=== PATIENT | male | born 1965 | race Caucasian/White ===

== ENCOUNTER 2016-12-17 10:47 | Observation (INO) | payer BC ==
[~2016-12-17] VITALS: Ht 172.7 cm; Wt 98.0 kg
--- NOTE | ~2016-12-17 | ECH ---
Transthoracic Echocardiography Report (TTE) Demographics Patient Name CARMEN MCMILLAN Date of Study 12/17/2016 Patient Number [id number] Visit Number [id number] Date of 1965 Room Number 433 Accession Number [id number] Gender Male Age 51 year(s) Referring Olu Josue Inside Sales Person Sheela Glass [facility] Physician Physician Martha Moses MD Restaurant Hourly Manager Physician Anton Supervising Ordering Physician King Uriel Sanchez MD, MD/MLP Nurse Stress Antique Clock Repairer Conclusions Contractility Score Summary Normal Left Ventricular contractility was noted. Summary Technically fair exam. The estimated left ventricular ejection fraction is 60-65%. Normal valvular function. Recommendation The patient will be given the results of this study by the physician who ordered the exam. Procedure Type of Study TTE procedure:Echo Complete SF. Procedure Date Date: 12/17/2016 Start: 04:33 PM Technical Quality: Fair due to body habitus. Indications:Chest pain and Coronary artery disease. Appropriate Use Criteria: 9 Height: 68 inches Weight: 216 pounds BSA: 2.11 m Rhythm: NSR HR: 63 bpm BP: 98/70 mmHg Allergies - Other:Severity - Unknown(augmentin). M-Mode/2D Measurements LV Diastolic Dimension: 4.6 cm LV Systolic Dimension: 265 cm LV Septum Diastolic: 1.01 cm LV PW Diastolic: 0.94 cm AO Root Dimension: 2.8 cm Cardiac Output: 8.25 l/min LA Dimension: 3.63 cm Cardiac Index: 3.91 l/min*m RV Diastolic Dimension: 3.01 cm LA volume index: 24 ml/m LVOT: 2.45 cm LVOT VTI: 27.8 cm RV Base: 3.44 cm LV Stroke volume: 130.99 ml RV Mid: 2.45 cm LV Stroke volume index: 62.08 ml/m TAPSE: 3.12 cm TDI-S': 13 cm/s Doppler Measurements AV Peak Velocity: 1.31 m/s MV Peak E-Wave: 0.74 m/s AV Peak Gradient: 6.86 mmHg MV Peak A-Wave: 0.76 m/s AV Mean Gradient: 3.2 mmHg MV E/A Ratio: 0.98 LVOT Peak Velocity: 1.24 m/s MV P1/2t: 45.8 msec AV Area (Continuity):4.52 cm MV Deceleration Time: 158 msec Estimated RAP:10 mmHg MV Area (PHT): 4.8 cm RA Area: 15.21 cm Findings Left Ventricle The left ventricle is normal in size . Diastolic assessment reveals normal relaxation. Right Ventricle Normal right ventricle structure and function. Left Atrium Normal left atrial size. Right Atrium Normal right atrial size. Mitral Valve Normal mitral valve structure and function. Aortic Valve Normal aortic valve structure and function. Tricuspid Valve Normal tricuspid valve structure and function. Pulmonic Valve The pulmonic valve is not well visualized. Pericardial Effusion No evidence of pericardial effusion. Miscellaneous Visualized portions of the aortic root and ascending aorta appear normal in size. Pleural Effusion No evidence of pleural effusion. Contractility Score LV regional wall motion:(0-Non visualized 1-Normal 2-Hypokinesis 3-Akinesis 4-Dyskinesis 5-Aneurysm) Signature
[~2016-12-17 10:47] MED LIST: ALEVE220 M1 PO; ASPIR 8181 MG PO; BRILINTA90 MG PO; FLEXERIL DPS5 MG PO; LIPITOR DPS40 MG PO; LOPRESSOR DPS50 MG PO; OMEGA-3 DPS1000 MG PO; OMEPRAZOLE20 MG PO
--- NOTE | 2016-12-18 08:27 | ER ---
ADMIT: 12/17/2016 RM/LOC: ER [facility] MR#: [id number] [address] [address] [facility] [address] [place] [id number] Emergency Room Report SEX: M AGE: 51 : 1965 DATE: 12/17/2016 This 51-year-old white male coming in with chest pain. He has had it on and off for, it sounds like a few days possibly. Worse with exertion. It waxes and wanes. It goes through to his back. Recently had a stent placed in his coronary artery in June this year. He has been doing fairly well. However, continues to smoke. While he was here, he also had a syncopal episode while he was lying down in bed. Going completely out, dropping his pressure, but more importantly, he had a cardiac pause on the rhythm that we caught when he went back. He seems to have recovered spontaneously. I spoke with Dr. Henderson, he will consult, but he will need to come in. [facility]. I think he does see Dr. Raines, he will need to admit. CONDITION ON DISCHARGE: Serious but stable. Carmen Holcomb MD/ jesse JOB #: [id number] CC: Carmen Holcomb MD, Attending Physician UNKNOWN, Family Physician
[2016-12-19] MEDS ORDERED: TYLENOL DPS325 MG PO (10:17)
[2016-12-19] MEDS ORDERED: [UNRECOGNIZED DRUG - OTHER] PO (10:17)
[2016-12-19] MEDS ORDERED: ZYLOPRIM-DPS300 MG PO (10:17)
--- NOTE | 2016-12-21 08:03 | HP ---
ADMIT: 12/17/2016 RM/LOC: 433 [facility] MR#: [id number] [address] [address] CARMEN MCMILLAN [address] [place] [id number] History and Physical SEX: M AGE: 51 : 1965 DATE OF SERVICE: CHIEF COMPLAINT: Right upper chest pain for the last couple of days-syncopal episode in the ER-known coronary artery disease. HISTORY OF PRESENT ILLNESS: Carmen is a very nice 51-year-old male, who works hard physically for the [employer]. He also follows with the [place]. He states he has had some pain around his right "shoulder blade." Over the last couple of weeks in [place], diagnosed it as "muscle spasm." That went away a few days ago but then over the last couple of days, he has had pain in his right upper chest - "especially when I lie down or when I sit up." The pain actually seemed to get better with activity, but would still wax and wane. Occasion seemed to go into his upper back. In June of 2016, he had a single coronary artery stent placed by [facility] and it had been doing very well. He does continue to smoke a half pack of cigarettes per day and I am "trying to quit." He admits to drinking alcohol "just on the weekends." His ER workup is quite benign but follows. In the ER, he had a syncopal episode while lying down in bed-may have been after he had nitroglycerin. He was seen by Dr. Henderson, who felt it best to have him admitted. We were asked to admit him under our service. PAST MEDICAL HISTORY: Quite benign. He has had no previous operations. He has known hyperlipidemia and history of chronic gastroesophageal reflux disease. He was seen in our office on 11/29/2016 with a 5-day history of productive cough with yellowish sputum. This was treated with amoxicillin. No symptoms apparently resolved. He did have previous colonoscopy showing "a couple of polyps." He also has occasional problems with migraine headache. ALLERGIES: HIS ALLERGIES ARE POTENTIALLY TO PENICILLIN, BUT ALONG WELL WITH AMOXICILLIN. CURRENT MEDICATIONS: Include: 1. Aspirin 81 mg daily. 2. Brilinta 90 mg b.i.d. 3. Fish oil 1000 mg three capsules at bedtime. 4. Cyclobenzaprine 5 mg b.i.d. p.r.n. migraine. 5. Omeprazole 20 mg daily. 6. Lipitor 40 mg at bedtime. 7. Lopressor 25 mg b.i.d. 8. Wellbutrin SR 100 mg b.i.d. (for smoking cessation). SOCIAL HISTORY: Reveals that he and his live here in [place]. As noted, he works hard physically. He denies any illicit drug use. FAMILY HISTORY: Positive for his grandfather for coronary artery disease and heart attack. REVIEW OF SYSTEMS: Times 10 points is otherwise generally negative. ADMIT: 12/17/2016 RM/LOC: 433 [facility] MR#: [id number] [address] [place] [id number] CARMEN MCMILLAN [address] [place] [id number] History and Physical SEX: M AGE: 51 : 1965 PHYSICAL EXAMINATION: GENERAL: He is alert, talkative, in good humor. VITAL SIGNS: Have been normal since his episode in the ER. HEENT: Essentially negative. NECK: Reasonably supple. I detect no bruits. LUNGS: Actually sound clear to auscultation. CARDIAC: Shows regular without murmur. ABDOMEN: Soft. No masses, tenderness, or organomegaly. Note specifically has no demonstrable chest wall pain to palpation. GENITAL AND RECTAL: Exam was not done. LOWER EXTREMITIES: Show good pulses. No edema. NEUROLOGIC: Normal within his ability to test. IMPRESSION: 1. Atypical chest plmx-phehz-lkpdt-suspect musculoskeletal. 2. Syncopal episode in the ER-possibly iatrogenic. 3. Known coronary artery disease-status post coronary artery stenting in June 2016. 4. Hyperlipidemia. 5. Nicotine dependence. 6. History of colon polyps. 7. History of migraine headaches. PLAN: He has been admitted and [facility] has already written orders. We will have him continue his home medications. We will follow his laboratory studies. We will check a hemoglobin A1c, lipid panel, and D-dimer. If his D-dimer is elevated, we will get a CTA of his chest given his atypical chest pain although his O2 sats have been good on room air. with great interest. He has been admitted to [facility] . Reji Raines MD/ jesse JOB #: [id number] CC: Reji Raines, Attending Physician Reji Raines, Family Physician
--- NOTE | 2017-02-01 12:30 | CO ---
ADMIT: 12/17/2016 RM/LOC: 433 [facility] MR#: [id number] [address] [address] CARMEN MCMILLAN [address] [place] [id number] Consultation SEX: M AGE: 51 : 1965 DATE OF CONSULTATION: 12/17/2016 ATTENDING PHYSICIAN: Reji Raines CONSULTING PHYSICIAN: Uriel Henderson MD REASON FOR CONSULTATION: Chest pain, history of coronary artery disease. HISTORY OF PRESENT ILLNESS: The patient is a pleasant 51-year-old male, well known to [facility]. He has a history of inferior ST- elevated myocardial infarction in 06/2016. At that time, he had a stent placed to his proximal RCA. His EF has been preserved. He had been doing well in followup, but within the last three weeks, has developed some right-sided back pain which radiates into his right chest. [facility] and was diagnosed with a muscle strain. He treated this with heat and Flexeril and it did improve somewhat. Yesterday came back and it stayed the whole time and it was still there this morning. He called the [facility] and they asked him to come into the emergency room for further evaluation. While here in the emergency room, he did get a nitroglycerin for his pain which caused a loss of consciousness. He had telemetry at that time, which showed second-degree AV block. The only other time he has felt dizzy, lightheaded, or had any syncope was years ago when he cut his finger in a same type of symptoms happen. He has had negative cardiac enzymes. His EKG does not showed any acute ST-T wave changes while here in the emergency room. When he was doing physical work such as shoveling and using a sledgehammer, he stated the pain improved until he stops the activity and then it got worse. PAST MEDICAL HISTORY: Hyperlipidemia, sinus surgery, stent placed in right arm, and GERD. He does have a history of tobacco abuse and continues to smoke. FAMILY HISTORY: Positive for coronary artery disease in his mom and his grandfather. SOCIAL HISTORY: He continues to smoke, does consume alcohol and caffeine. He is currently working and does a physical job. MEDICATIONS: He is taking include: 1. Aleve 220 mg b.i.d. p.r.n. 2. Allopurinol 300 mg one p.o. daily. 3. Aspirin 81 mg p.o. daily. 4. Brilinta 90 mg p.o. b.i.d. 5. Bupropion 150 mg two times a day. 6. Cyclobenzaprine 5 mg two times a day as needed. 7. Fish oil. 8. Lipitor 40 mg p.o. daily. 9. Metoprolol tartrate 25 mg two times a day. 10.Nitro as needed. 11.Omeprazole 20 mg a day. ADMIT: 12/17/2016 RM/LOC: 433 [facility] MR#: [id number] [address] [place] [id number] CARMEN MCMILLAN [address] [place] [address] Consultation SEX: M AGE: 51 : 1965 States he has been compliant with his medications. ALLERGIES: AMOXICILLIN. PHYSICAL EXAMINATION: Per Dr. Henderson: VITAL SIGNS: Temp 96.8, respirations 16, pulse 69, blood pressure 128/89, O2 saturation 100% on room air. SKIN: [place], warm and dry. EYES: Sclerae clear. No xanthelasmas. ENT: Oral mucosa is pink and moist. No jugular venous distention or carotid bruits. CHEST: Respirations are even and unlabored. Lungs are clear to auscultation. HEART: Regular rate and rhythm. Normal S1, S2. No murmurs, rubs or gallops. ABDOMEN: Soft and nontender. MUSCULOSKELETAL: Gait is normal. EXTREMITIES: Peripheral pulses palpable. No clubbing, cyanosis or edema. PSYCHIATRIC: Alert and oriented. Mood and affect are appropriate. DIAGNOSTICS: CBC is within normal limits. BMP is within normal limits except for GFR of 64. Troponin is negative. EKG does not show any acute ST-T wave changes. ASSESSMENT: Per Dr. Henderson. 1. Chest pain. 2. Presyncope. 3. Type 2 second-degree heart block. 4. Coronary artery disease with recent stenting. 5. Ongoing tobacco abuse. PLAN: Per Dr. Henderson: I am suspicious the heart block was vagal as he had some low blood pressure and other symptoms at the time of the block. He also had nitro right prior to this. We will watch him on telemetry. His chest pain is atypical, and he is still able to work hard without any reproduction of the symptoms. Because of his risk factors, we should warrant an ischemic evaluation. We will rule him out here and plan on an outpatient stress test. We will continue to monitor his symptoms and diagnostics and amend our plan accordingly. Thank you for allowing us to participate in the care of this patient. ASHA Bernal / Uriel Henderson MD / jesse JOB #: [id number] CC: Reji Raines, Attending Physician Reji Raines, Family Physician
== END 2016-12-18 12:50 | disposition home or self-care (01) ==
LOC: ER 10:47 → 4PCU 13:29
PROVIDERS: ADMIT Family Medicine
DX: R07.89 Other chest pain (principal); R55 Syncope and collapse; I25.10 Atherosclerotic heart disease of native coronary artery without angina pectoris; I44.1 Atrioventricular block, second degree; E78.5 Hyperlipidemia, unspecified; K21.9 Gastro-esophageal reflux disease without esophagitis; Z88.0 Allergy status to penicillin; Z88.1 Allergy status to other antibiotic agents; Z86.010 Personal history of colon polyps; Z79.82 Long term (current) use of aspirin; Z79.899 Other long term (current) drug therapy